=== PATIENT | male | born 1950 | race Caucasian/White ===

== ENCOUNTER 2017-02-12 10:45 | Outpatient (RCR) | payer MEDICARE ==
--- NOTE | 2017-01-14 10:56 | PT/OT/ST INITIAL EVALUATION ---
Department of Health and Human Services Form Approved [facility] Care Financing Administration OMB No. [id number] PLAN OF CARE/ASSESSMENT FOR OUTPATIENT REHABILITATION (Complete for Initial Claims Only) 1. PATIENT'S NAME Nathaniel Krishnamurthy 2. ACC # [id number] 3. [facility] [id number] 4. PROVIDER NO. [id number] 5. TYPE: PT 6. PRIOR HOSPITALIZATION None 7. PRIMARY DX Mechanical back pain 8. SECONDARY DX Thoracic back spasms 9. ONSET DATE Several weeks ago 10. REFERRAL DATE 01/09/2017 11. SOC. DATE 01/13/2017 12. TIME OF EVAL 9:00 a.m. 12. REFERR[address] PHYSICIAN Dr. Jero Martel 13. CHARGES/UNITS NA 14. G CODES NA 15. PRIOR LEVEL OF FUNCTION; PERTINENT HISTORY (Prior therapy results, reason for referral.) S: Reason for referral: The patient was referred to physical therapy by Dr. Martel with the diagnosis of mechanical back pain. The patient reports having a significant history regarding back surgeries when the patient was 11. Dias rods were placed at his back to correct scoliosis. The patient has then underwent 5 other surgeries to his back to replace or correct the mechanical hardware there. The patient has rods from pelvis to mid thoracic region. The patient's last surgery was in 2013. He patient reports that he has been experiencing pain at his right mid to upper back region over the past several weeks. The patient notes that the pain gradually increases in intensity throughout the day and at times he has a sharp pain when he moves quickly or when he steps over something. The patient has been more active with exercising at the [facility] with walking on the treadmill and lifting weights. Occupational and social health history: The patient is retired. He does enjoy working in his yard. Overall health rating: Rates overall health as good. Pain rating: Currently he rates his pain to be 7/10. Current medications: Includes Celebrex as needed for his back and the patient does take Mobic for arthritis at his knees. The patient does not report any pain when coughing or sneezing. Patient's Goal: The patient's goal is to get rid of the pain at his upper back. 16. INITIAL ASSESSMENT/SAFETY PRECAUTIONS/MEDICAL COMPLICATIONS (Level of function at start of care. Be specific, use objective measures, list problems.) O: APPEARANCE AND OBSERVATION: The patient is a 66-year-old male. He demonstrates slight forward flexed posture and mildly forward head and rounded shoulders. Appearance of back demonstrates a long incision from his upper thoracic to his pelvic region. Increased muscle hypertrophy noted at left side. Right side demonstrates a mild concavity in the incision. PALPATION: The patient did have tenderness to palpation at medial border of his scapula along his thoracic paraspinals distally to T7-T8 region. RANGE OF MOTION/FLEXIBILITY: Cervical range of motion-flexion 80%, extension 60%, right rotation 60%, and left rotation 40% with pain at his upper back region. Bilateral side bending 50% with pain at his right upper back region. Shoulder range of motion 120 degrees bilaterally. Trunk flexion only 50%. STRENGTH: Right shoulder was 4+/5 manual muscle test, left shoulder was 5/5 manual muscle test. TODAY'S TREATMENT: Treatment included initial evaluation followed by ASTYM and manual stretching to the patient's right thoracic paraspinals. The patient was then instructed on gentle flexibility and postural exercises. The treatment included initial evaluation followed by manual therapy and therapeutic exercises. 17. INITIAL POC: (Specify procedures, modalities, short and snf goals) A: The patient presents with right thoracic pain and muscle spasms. PROGNOSIS: The patient may benefit from physical therapy to help alleviate sharp pain and spasms. GOALS: 1. The patient to be compliant with home exercise program and light strengthening activities in 2 weeks. 2. The patient to report 50% decrease in occurrence of sharp pain at right thoracic region in 4 weeks. 3. The patient to be compliant with light thoracic upper back and shoulder strengthening in 4 weeks. P: The patient to be seen 2 times a week over the next 4 weeks. Plan on progressing the patient with gentle stabilization and light strengthening activities as tolerated. Modalities and manual therapy will be used if necessary. 18. FREQUENCY 19. DURATION 20. FUNCTIONAL LEVEL (End of claim period) 21. PHYSICIAN SIGNATURE ? ON FILE OR ENTER HERE: 22. DATE: I certify the need for these services furnished under this plan of care and if for partial hospitalization. 23. CERTIFICATION FROM THROUGH [facility][id number]
[~2017-02-12 10:45] MED LIST: ALLO300T2 PO; ATOR40TA2 PO; BPR150TCR PO; BUPR100T6 PO; CHOL200025 PO; DOCU100T2 PO; GBPN300C PO; HYDR-700 PO; INDA1.25 PO; LSNP20T PO; MAGN200T PO; MAGN400T29 PO; MELO15TA14 PO; METH750T3 PO; OMEG-58 PO; OMEG1CAP24 PO; OMEP20CA6 PO; OXYC1TAB6 PO; UBID400C6 PO
== END 2017-03-03 13:14 | disposition home or self-care (01) ==
LOC: PT 10:45
PROVIDERS: ATTEND Family Medicine
DX: M54.89 Other dorsalgia (principal); M62.830 Muscle spasm of back; Z98.890 Other specified postprocedural states
CPT/HCPCS: 97110; 97140; 97161; G8981; G8982; G8983